=== PATIENT | male | born 1935 | race Caucasian/White ===

== ENCOUNTER 2016-09-28 13:44 | Inpatient (IN) | payer OTHER ==
[~2016-09-28] VITALS: Ht 172.7 cm; Wt 87.7 kg
--- NOTE | ~2016-09-28 | 2DMMODE ---
[facility] [address] [place] [address] 2 D/M-MODE ECHOCARDIOGRAM Name: GAIL PERERA Room #: 304-P [facility] IN ..#: [id number] Admission: 09/28/16 Attend Phys: Gail Parker, Discharge: Date of : 35 Date of Service: 09/30/16 1355 Report #: [id number] THIS REPORT FOR: //name// APPROVED REPORT Study performed: 09/30/2016 09:32:12 EXAM: Comprehensive 2D, Doppler, and color-flow Echocardiogram Patient Location: Bedside Room #: 304 Status: on-call Other Information Study Quality: Good Indications RI. Hx: ISCM, Afib, COPD, CHF 2D Dimensions RVDd: 46.95 mm LVEF(%): 15.10 (>50%) IVSd: 11.18 (7-11mm) LVOT Diam: 21.57 (18-24mm) LVDd: 60.81 mm PWd: 10.01 (7-11mm) Ascending Ao: 34.42 (22-36mm) LVDs: 56.62 (25-40mm) Aortic Root: 38.08 mm Osman's LVEF: 15.10 % Volumes Left Atrial Volume (Systole) Single Plane 4CH: 77.60 mL Single Plane 2CH: 103.80 mL LA ESV Index: 47.00 mL/m2 Aortic Valve AoV Peak Jay Jay.: 1.20 m/s AO Peak Gr.: 6.03 mmHg LVOT Max P.96 mmHg LVOT Max V: 0.70 m/s ZACARIAS Vmax: 2.13 cm2 Mitral Valve MV Decel. Time: 102.52 ms MV E Max Jay Jay.: 1.35 m/s Pulmonary Valve PV Peak Jay Jay.: 0.54 m/s PV Peak Gr.: 1.[address] [facility] [place] [address] 2 D/M-MODE ECHOCARDIOGRAM Name: GAIL PERERA Room #: 304-P [facility]#: [id number] Admission: 09/28/16 Attend Phys: Gail Parker, Discharge: Date of : 35 Date of Service: 09/30/16 1355 Report #: [id number] Tricuspid Valve TR Peak Jay Jay.: 4.08 m/s RAP Estimate: 15.00 mmHg TR Peak Gr.: 66.65 mmHg PA Pressure: 82.00 mmHg Left Ventricle Left ventricle is mildly dilated. There is normal left ventricular wall thickness. Left ventricular systolic function is severely decreased. LVEF is 25%. This study is not technically sufficient to allow evaluation of the LV diastolic function. Right Ventricle Right ventricle is moderately dilated. Right ventricle is hypokinetic. Atria Left atrium is severely dilated. Right atrium is severely dilated. Aortic Valve Aortic valve leaflets are mildly thickened. No aortic regurgitation is present. There is no aortic valvular stenosis. Mitral Valve Mitral valve leaflets are structurally normal Moderate mitral regurgitation. Tricuspid Valve There is moderate to severe tricuspid regurgitation. The right atrial pressure is estimated at 15 mmHg. There is severe pulmonary hypertension with an estimated PAP of 80-85mmHg. Pulmonic Valve The pulmonary valve is normal in structure. Trace pulmonic regurgitation. Great Vessels Aortic root is at the upper limites of normal. The ascending aorta is normal in size. IVC is dilated and collapses <50% with inspiration. Pericardium There is no pericardial effusion. <Conclusion> Left ventricular systolic function is severely decreased. [facility] [address] [place] [address] 2 D/M-MODE ECHOCARDIOGRAM Name: GAIL PERERA Room #: 304-P [facility] IN ..#: [id number] Admission: 09/28/16 Attend Phys: Gail Parker, Discharge: Date of : 35 Date of Service: 09/30/16 1355 Report #: [id number] LVEF is 25%. Both atria are severely dilated. Aortic valve leaflets are mildly thickened. No aortic regurgitation or stenosis Mitral valve leaflets are structurally normal. Moderate mitral regurgitation. There is severe pulmonary hypertension with an estimated pulmonary artery pressure of 80-85mmHg. There is no pericardial effusion. <ELECTRONICALLY SIGNED> By: Harry Reyes MD, [facility] 09/30/16 1355 1355 1355 Harry Reyes MD, [facility] /INF
--- NOTE | ~2016-09-28 | HC ---
[facility] [place] [address] [place] [address] CONSULTATION Name: GAIL PERERA Room #: 304-P [facility] IN M.R.#: [id number] Admission: 09/28/16 Attend Phys: Gail Parker DO Discharge: 10/04/16 Date of : 35 Report #: [id number] THIS REPORT FOR: //name// CC: Juan Carlos Parker PRIMARY PHYSICIAN: Juan Carlos Matthews DO REFERRING PHYSICIAN: Gail Parker DO REASON FOR REFERRAL: Dyspnea, possible COPD, and effusion. HISTORY OF PRESENT ILLNESS: The patient is an 80-year-old white male who was transferred from [facility] for further evaluation and management of his acute cholecystitis. He has COPD. A pulmonary consultation was requested. The patient has had abdominal pain recently. He was found to have acute cholecystitis. A percutaneous cholecystostomy tube was placed there. Unfortunately, the tube was accidently pulled out yesterday. Overnight, the patient has had worsening abdominal pain. For that reason, the patient was transferred to [facility] for further evaluation and management. The patient states that he has smoked, but quit in . He was currently being evaluated for possible COPD. A pulmonary function test was performed. He was scheduled to see a battery container finishing hand at [facility]. Aside from his abdominal pain, he also has mild dyspnea. Otherwise, denies any chest pain, productive cough or hemoptysis. During this hospital stay, the patient was treated for presumed pneumonia. He has right lower extremity DVT and is on Eliquis. He has coronary artery disease with ischemic cardiomyopathy, ejection fraction at 25%. PAST MEDICAL HISTORY: Recent diagnosis of Lewy body dementia, coronary artery disease, ischemic cardiomyopathy, atrial fibrillation, presumed COPD, chronic systolic heart failure, hypocholesterolemia, gastroesophageal reflux disease, hypothyroidism, peripheral artery disease, skin cancer, history of depression, and also as mentioned above. PAST SURGICAL HISTORY: Lumbar diskectomy, prior oral surgery with complete tooth extraction, shoulder rotator cuff surgery, kyphoplasty for compression fracture of the vertebrae from a fall, and right carotid endarterectomy. ALLERGIES: None to medications. CURRENT MEDICATIONS: List reviewed. This would include vancomycin, Zosyn, Eliquis, metoprolol, amiodarone, diltiazem, levothyroxine, spironolactone, [address] [address] CONSULTATION Name: GAIL PERERA Room #: 304-P [facility] IN ..#: [id number] Admission: 09/28/16 Attend Phys: Gail Parker DO Discharge: 10/04/16 Date of : 35 Report #: [id number] omeprazole, Ventolin, Celexa, and Lipitor. FAMILY HISTORY: Noncontributory. SOCIAL HISTORY: The patient is . He has smoked, but quit in . Denies any alcohol use. He used to work in construction . REVIEW OF SYSTEMS: As mentioned above, otherwise 10-point system review negative. PHYSICAL EXAMINATION: GENERAL: He is awake, alert, in mild distress. VITAL SIGNS: Temperature is 97.7 degrees Fahrenheit, pulse is 87, respiratory rate is 18, blood pressure is 89/60 mmHg, and saturation is 99% on 2 liters of O2. HEENT: Normocephalic and atraumatic. NECK: Supple, without any lymphadenopathy or thyromegaly. CHEST: Breath sounds are moderate with mild expiratory wheezes. CARDIOVASCULAR: Normal S1 and S2. There are no obvious murmurs or gallop. Pulses are 2+/4+ bilaterally. ABDOMEN: Soft, mildly tender in right upper quadrant, no masses felt. GENITOURINARY: Deferred. RECTAL: Deferred. EXTREMITIES: No cyanosis or clubbing, but remarkable 2-3+/4+ bilateral edema. LABORATORY DATA: CT abdomen noted, showing incompletely distended gallbladder with moderate surrounding inflammation, [id number] right-sided pleural effusion. Electrolytes, sodium 135, potassium 4.3, chloride 98, CO2 is 32, BUN is 42, creatinine is 1.6. Liver function test is unremarkable. WBC 11,500, hemoglobin is 12.1. No evidence of bandemia. Albumin 2.3. IMPRESSION: 1. Oews-yq-qxuvqdhf right-sided pleural effusion in this 80-year-old white male. This is likely reactive due to his acute cholecystitis. I would recommend a diagnostic thoracentesis to rule out complicated effusion. 2. Probable chronic obstructive pulmonary disease with bronchospasm, hypoxia. Continue bronchodilators. Wean O2 to keep saturation 90%. 3. Acute cholecystitis, status post cholecystostomy tube placement earlier today. 4. Atrial fibrillation. 5. Right lower extremity deep venous thrombosis, on anticoagulation. Defer to primary team. 6. Lewy body dementia. 7. Renal insufficiency, unclear if it is acute or chronic. 8. Protein-calorie malnutrition, severe with an albumin of 2.3. [facility] [address] [place] [address] CONSULTATION Name: TREVERGAIL Hicks Room #: 304-P [facility] IN .R.#: [id number] Admission: 09/28/16 Attend Phys: Gail Parker DO Discharge: 10/04/16 Date of : 35 Report #: [id number] RECOMMENDATION: We will continue bronchodilators. I will defer corticosteroids at this time given acute cholecystitis. DVT and GI prophylaxis will be addressed. Follow renal function closely. Thank you for this consultation. <ELECTRONICALLY SIGNED> By: Zac Carbajal MD 10/06/16 1850 [id number] 1525 Zac Carbajal MD /nt
--- NOTE | ~2016-09-28 | HC ---
[facility] [place] [address] [place] [address] CONSULTATION Name: GAIL PERERA Room #: 304-P ADM IN M.R.#: [id number] Admission: 09/28/16 Attend Phys: Gail Parker DO Discharge: Date of : 35 Report #: [id number] THIS REPORT FOR: //name// CC: Juan Carlos Parker HISTORY OF PRESENT ILLNESS: The patient is an 80-year-old male who it sounds like has complicated history, but was admitted to [facility] earlier this month, then subsequently transferred here under the auspice of some heart failure, pneumonia, and ____ relatively recent onset of atrial fibrillation. We have limited records; he had bilateral carotid endarterectomies previously. It appears that his home medications had been Eliquis 2.5 b.i.d. for DVT, there are reports of right lower extremity DVT and I do not know the duration of that; metoprolol 25; amiodarone 400 b.i.d., this was started down there; Aldactone; vancomycin; omeprazole; albuterol; Celexa; had been on levothyroxine, aspirin, gabapentin, and glucosamine. He is not able to give much of a history here, as he is status post I believe a repeat drain put in for gallbladder issues, has been holding on gallbladder surgery for 3 months is my understanding. No documented coronary artery disease and I do not know the history of AFib. Daughter is here, but she is not really aware of whether he has had it before or not. Apparent right lower extremity DVT and some questionable clot where a PICC line was pulled out of the right upper extremity, although that exam is negative right now. He had impending sepsis from this gallbladder issue and acute hepatitis, which all resolved, and the right lower extremity DVT. The atrial fib has been difficult to control. He allegedly had an echo done on September 18, but I cannot locate the report in these extensive records from [place]. He will respond to my voice. PAST MEDICAL HISTORY: Positive for this gallbladder issue; cholesterol; AFib; Lewy body dementia; COPD; some history of heart failure; coronary artery disease, I do not have specific history; hypothyroidism; bilateral carotid endarterectomies; kyphoplasties; rotator cuff; pancreatitis; and cholecystitis earlier this month ____ hospitalization in [place]. MEDICATIONS: Currently, he is on Exelon, oxycodone, Mag-Ox, metoprolol 25, amiodarone 400 b.i.d., diltiazem 180, Eliquis 2.5 b.i.d., levothyroxine, Aldactone 25, Zosyn, vancomycin, omeprazole, albuterol, Celexa, and Lipitor 10. SOCIAL HISTORY: Apparently no current alcohol or tobacco. Lives at home, still with some help according to the daughter. He is still . Retired from construction. FAMILY HISTORY: Not obtainable currently. ALLERGIES: No known drug allergies. LABORATORY DATA: Creatinine 1.8, now 1.6; potassium 4.3. GFR 42. [facility] [address] [place] [address] CONSULTATION Name: GAIL PERERA Room #: 304-P ADM IN M.R.#: [id number] Admission: 09/28/16 Attend Phys: Gail Parker DO Discharge: Date of : 35 Report #: [id number] protein 5.5. H and H 12.1 and 38.4, white count 11.5. He had a cholecystectomy tube just placed. PHYSICAL EXAMINATION: VITAL SIGNS: Blood pressure 112/62, pulse 70. HEENT: Eyes reveal xanthelasmas. Pharynx is with dry mucous membranes. NECK: Shows preserved upstrokes without JVD and a question of bruit. LUNGS: Diminished breath sounds in the bases, decreased excursion throughout. CARDIOVASCULAR: Distant heart tones, irregularly irregular, holosystolic murmur. ABDOMEN: Soft, status post tube placement. Slightly distended, appears minimally tender, although is minimally responsive currently. EXTREMITIES: Revealed 2 to 3+ edema, right greater than left. Does not respond for Homans sign. I cannot palpate distal pulses. NEUROLOGIC: Essentially nonfocal. He moves all 4 extremities, appears very sedated from the apparent cholecystectomy tube, but the daughter states he normally is responsive to some extent. MUSCULOSKELETAL: Generalized arthritic changes. ASSESSMENT: 1. Recent atrial fibrillation with rapid ventricular response, currently rate controlled on multiple medications. 2. Right lower extremity deep venous thrombosis. 3. Possible pneumonia. 4. Impending sepsis secondary to acute on chronic cholecystitis, cholelithiasis, has been holding off on any surgical procedure, drain recently placed. 5. Right lower extremity deep venous thrombosis. 6. Hypothyroidism. 7. History of heart failure. I do not have specific records regarding this. RECOMMENDATIONS AND PLAN: I would go with Lovenox currently, it looks like this may be an Eliquis failure here with his deep venous thrombosis, although I do not really fully understand the timing of these medications when they were initiated. His rate is currently controlled. I will start IV Lasix 40 IV b.i.d. based on the significant amount of edema, though daughter states he has very large legs compared to usual for him, so significant fluid retainment. Echo Doppler in the morning. I will discontinue the Eliquis, start the Lovenox, he may be a q.24 based on renal function. We will continue the metoprolol, Cardizem, and amiodarone currently. We will follow with you. Thank you for asking me to assist in the care of this patient. By: [id number] Guillermo Rossi MD, FACC /nt
--- NOTE | ~2016-09-28 | HC ---
[facility] [place] [address] CONSULTATION Name: GAIL PERERA Room #: 304-P [facility] IN .R.#: [id number] Admission: 09/28/16 Attend Phys: Gail Parker DO Discharge: Date of : 35 Report #: [id number] THIS REPORT FOR: //name// CC: Juan Carlos Matthews Gail Parker DATE OF SERVICE: 09/28/2016 REFERRING PROVIDER: Gail Parker M.D. REASON FOR CONSULTATION: Abdominal pain. HISTORY OF PRESENT ILLNESS: The patient is an 80-year-old male with a history of Lewy body dementia who was admitted to [facility] on 09/12/2016 with pneumonia and weakness where he was diagnosed with sepsis. The patient was found to have severe acute cholecystitis and as such underwent placement of a percutaneous cholecystostomy tube. Through his hospitalization, he developed atrial fibrillation with rapid ventricular response as well as a right lower extremity DVT for which he was placed on Eliquis. Unfortunately, the patient traumatically removed his percutaneous cholecystostomy tube yesterday and has had progressive worsening in abdominal pain and has now become febrile at the outside hospital. As such, he was transferred here for definitive care, especially in light of his ischemic cardiomyopathy with his ejection fraction of 25%. PAST MEDICAL HISTORY: Lewy body dementia, ischemic cardiomyopathy, atrial fibrillation with RVR, COPD, CHF, coronary artery disease, hypercholesterolemia, GERD, hypothyroidism, peripheral vascular disease, prior skin cancer, depression and his recent severe cholecystitis and pancreatitis. MEDICATIONS: Rivastigmine, oxycodone IR, Maalox, Toprol-XL, Lidoderm patch, amiodarone, Cardizem, Eliquis, Colace, senna, Synthroid, Aldactone, Tylenol, Zosyn, vancomycin, Prilosec, albuterol, Celexa and Lipitor. ALLERGIES: No known drug allergies. FAMILY HISTORY: Reviewed and noncontributory. SOCIAL HISTORY: The patient is a former smoker, having quit several years ago. Does not currently utilize tobacco, alcohol or illicit drugs. REVIEW OF SYSTEMS: GENERAL: The patient states positive fevers, chills, malaise and weakness. HEENT: No change in vision, change in hearing. NECK: No swelling or difficulty swallowing. HEART: No chest pain, but does have some shortness of breath. [address] [address] CONSULTATION Name: GAIL PERERA Room #: 304-P [facility] IN M.R.#: [id number] Admission: 09/28/16 Attend Phys: Gail Parker DO Discharge: Date of : 35 Report #: [id number] LUNGS: Positive for coughing and shortness of breath. ABDOMEN: Abdominal pain and nausea. GENITOURINARY: No dysuria or hematuria. ENDOCRINE: No polyuria or polydipsia. HEMATOLOGIC: No history of bleeding or easy bruising. EXTREMITIES: No history of weakness or limited range of motion. NEUROLOGIC: No history of syncope or near syncopal episodes. SKIN AND INTEGUMENT: No history of abnormal lesions or moles. PSYCHIATRIC: No history of anxiety or depression. PHYSICAL EXAMINATION: VITAL SIGNS: Temperature 97.6, pulse 87, respirations 18, blood pressure 106/82. He stands 5 feet 8 inches tall and weighs 215 pounds. GENERAL: He is alert, in no acute distress. HEENT: Normocephalic, atraumatic. Pupils equal, round, reactive to light. NECK: Supple, without lymphadenopathy. Trachea midline. HEART: Currently appears regular rate and rhythm. LUNGS: Coarse breath sounds with diminished air entry in the right base. ABDOMEN: Soft, nondistended. He is tender to palpation in the right upper quadrant with mild guarding, but no rebound. GENITOURINARY: Normal external male genitalia. EXTREMITIES: No clubbing, cyanosis or edema. NEUROLOGIC: Cranial nerves 2-12 are grossly intact. PSYCHIATRIC: Normal mood and affect. SKIN AND INTEGUMENT: No abnormal lesions or moles. LABORATORY AND X-RAY DATA: CBC shows white blood cell count of 13,700, hemoglobin 12.2, platelets 202,000. Creatinine is 1.8. Liver function enzymes are elevated with a bilirubin of 1.2. AST is normal at 18, ALT is 64, alkaline phosphatase 117, albumin is low at 2.3. CT scan of the abdomen and pelvis was personally reviewed and shows surrounding inflammation around the gallbladder and pancreas and in the perihepatic region. He also appears to have a moderate right pleural effusion and infiltrate. ASSESSMENT AND PLAN: An 80-year-old male with a traumatically dislodged percutaneous cholecystostomy tube that was recently placed for severe acute cholecystitis. In addition, it appears he has pleural effusion with a possible pneumonia at the right base. Currently, the patient has been admitted. We will continue him on antibiotics at this time. Dr. Hernández has been asked to see the patient from an infectious disease standpoint. I will ask Interventional Radiology to replace a percutaneous cholecystostomy tube as well as drain any fluid intraabdominally that they see on their review of the CT scan. The patient is not an ideal surgical candidate moving forward and as such, all attempts will be made at managing him conservatively with percutaneous drainage at this time. I sincerely appreciate this consult. I will follow [address] [address] CONSULTATION Name: GAIL PERERA Room #: 304-P ADM IN M.R.#: [id number] Admission: 09/28/16 Attend Phys: Gail Parker DO Discharge: Date of : 35 Report #: [id number] closely and leave any further recommendations in the patient's chart as appropriate. <ELECTRONICALLY SIGNED> By: Roland Mariano MD, FACS 10/02/16 0840 0922 [id number] Roland Mariano MD, FACS /nt
[~2016-09-28 13:44] MED LIST: ASPIR 8181 MG PO; CARVEDILOL12.5 MG PO; CELEXA20 MG PO; COSAMIN DS CAP1 EACH PO; COZAAR100 MG PO; FISH OIL 1,001000 M2 PO; IBUPROFEN 600600 M1 PO; KLOR-CON 1010 MEQ PO; LASIX 40 MG TAB40 M2 PO; LEVOTHYROXIN0.075 MG PO; LIPITOR10 MG PO; NEURONTIN300 MG PO; PERCOCET 10-321 EACH PO; PRILOSEC 20 MG20 MG PO; VENTOLIN HFA 1818 GM INH
[2016-09-28 16:00] VITALS: BP 106/82
[2016-09-28] MEDS ORDERED: EXELON 9.5 MG9.5 MG TD (16:49)
[2016-09-28] MEDS ORDERED: OXYCODONE HCL 55 MG PO (16:50)
[2016-09-28] MEDS ORDERED: MAALOX ADVANCE355 M1 PO (16:51)
[2016-09-28] MEDS ORDERED: TOPROL XL25 MG PO (16:51)
[2016-09-28] MEDS ORDERED: LIDODERM 5%1 PATC1 TRANSDERM (16:52)
[2016-09-28] MEDS ORDERED: CARDIZEM CD180 MG PO (16:53)
[2016-09-28] MEDS ORDERED: PACERONE 200 M200 M1 PO (16:53)
[2016-09-28] MEDS ORDERED: ELIQUIS5 MG PO (16:55)
[2016-09-28] MEDS ORDERED: COLACE100 MG PO (16:57)
[2016-09-28] MEDS ORDERED: SENNA CONCENTR8.6 MG PO (16:58)
[2016-09-28] MEDS ORDERED: SYNTHROID88 MCG PO (16:59)
[2016-09-28] MEDS ORDERED: ALDACTONE25 MG PO (17:07)
[2016-09-28] MEDS ORDERED: TYLENOL325 MG PO ×2 (17:08)
[2016-09-28] MEDS ORDERED: ZOSYN 2.25 GR2.25 GM IV (17:11)
[2016-09-28] MEDS ORDERED: VANCO-0.9%750 MG/250 IV (17:14)
[2016-09-28 20:00] VITALS: BP 109/76
[2016-09-28 20:13] LABS: HEMATOCRIT 38.6 % (42.0-52.0); HEMOGLOBIN 12.2 gm/dL (14.0-18.0); MCH 26.1 pg (26.0-34.0); MCHC 31.5 g/dL (28.0-37.0); MCV 82.8 fL (80.0-100.0); PLATELET COUNT 202 thou/uL (150-400); RBC 4.66 mil/uL (4.50-6.00); RDW 18.3 % (10.5-14.5); WBC 13.7 thou/uL (4.0-11.0)
[2016-09-28 20:16] LABS: MANUAL DIFF YES
[2016-09-28 20:26] LABS: ALBUMIN 2.3 g/dL (3.4-5.0); CALCIUM 8.2 mg/dL (8.5-10.1); CREATININE 1.8 mg/dL (0.7-1.3); POTASSIUM 4.5 mmol/L (3.5-5.1); TOTAL BILIRUBIN 1.2 mg/dL (<0.1-1.0); TOTAL PROTEIN 5.5 g/dL (6.4-8.2)
[2016-09-28 20:43] LABS: ABSOLUTE NEUTROPHILS 11.6 thou/uL (1.4-8.2); BURR CELLS 3+; OVALOCYTES 1+; POLYCHROMASIA 2+; TOTAL CELL COUNT 100
[2016-09-29] VITALS (12 sets, daily range): BP systolic 89–130; BP diastolic 54–86
[2016-09-29 10:08] LABS: BASOPHILS 1.1 % (0.0-2.0); EOSINOPHILS 0.6 % (0.0-3.0); HEMATOCRIT 38.4 % (42.0-52.0); HEMOGLOBIN 12.1 gm/dL (14.0-18.0); LYMPHOCYTES 11.1 % (24.0-44.0); MCHC 31.4 g/dL (28.0-37.0); MCV 82.9 fL (80.0-100.0); MONOCYTES 9.2 % (1.0-8.0); PLATELET COUNT 205 thou/uL (150-400); RBC 4.64 mil/uL (4.50-6.00); RDW 18.6 % (10.5-14.5); WBC 11.5 thou/uL (4.0-11.0)
[2016-09-29 10:15] LABS: MANUAL DIFF NO
[2016-09-29 10:24] LABS: INR 1.2; PROTIME 12.7 Seconds (9.3-11.4)
[2016-09-29 10:27] LABS: CALCIUM 8.2 mg/dL (8.5-10.1); CREATININE 1.6 mg/dL (0.7-1.3); POTASSIUM 4.3 mmol/L (3.5-5.1)
[2016-09-30 03:52] VITALS: BP 116/79
[2016-09-30 04:09] LABS: HEMATOCRIT 38.9 % (42.0-52.0); HEMOGLOBIN 12.2 gm/dL (14.0-18.0); MCH 26.5 pg (26.0-34.0); MCHC 31.5 g/dL (28.0-37.0); MCV 84.1 fL (80.0-100.0); PLATELET COUNT 195 thou/uL (150-400); RBC 4.63 mil/uL (4.50-6.00); RDW 18.7 % (10.5-14.5); WBC 10.4 thou/uL (4.0-11.0)
[2016-09-30 04:16] LABS: MANUAL DIFF YES
[2016-09-30 04:35] LABS: CREATININE 1.8 mg/dL (0.7-1.3); POTASSIUM 4.1 mmol/L (3.5-5.1)
[2016-09-30 05:13] LABS: ABSOLUTE NEUTROPHILS 9.8 thou/uL (1.4-8.2); ATYPICAL LYMPHS 2 %; TOTAL CELL COUNT 100
[2016-09-30 05:14] LABS: ANISOCYTOSIS 2+
[2016-09-30 08:45] VITALS: BP 121/83
[2016-09-30 10:38] LABS: DIRECT BILIRUBIN 0.5 mg/dL (<0.1-0.3); TOTAL BILIRUBIN 1.2 mg/dL (<0.1-1.0)
[2016-09-30 17:10] VITALS: BP 101/65
[2016-09-30 19:42] VITALS: BP 108/69
[2016-10-01 03:19] VITALS: BP 112/75
[2016-10-01 07:50] LABS: CALCIUM 8.3 mg/dL (8.5-10.1); CREATININE 1.9 mg/dL (0.7-1.3); POTASSIUM 3.8 mmol/L (3.5-5.1)
[2016-10-01 08:49] VITALS: BP 122/76
[2016-10-01 16:12] VITALS: BP 98/61
[2016-10-01 19:04] VITALS: BP 116/85
[2016-10-02 03:46] VITALS: BP 112/77
[2016-10-02 03:49] LABS: HEMATOCRIT 38.1 % (42.0-52.0); HEMOGLOBIN 11.9 gm/dL (14.0-18.0); MCHC 31.3 g/dL (28.0-37.0); MCV 82.9 fL (80.0-100.0); PLATELET COUNT 213 thou/uL (150-400); RDW 18.3 % (10.5-14.5); WBC 15.2 thou/uL (4.0-11.0)
[2016-10-02 03:56] LABS: ALBUMIN 2.4 g/dL (3.4-5.0); CALCIUM 8.2 mg/dL (8.5-10.1); CREATININE 1.7 mg/dL (0.7-1.3); POTASSIUM 3.7 mmol/L (3.5-5.1); TOTAL BILIRUBIN 0.9 mg/dL (<0.1-1.0); TOTAL PROTEIN 5.9 g/dL (6.4-8.2)
[2016-10-02 03:59] LABS: MANUAL DIFF YES
[2016-10-02 07:49] VITALS: BP 117/58
[2016-10-02 08:38] LABS: ABSOLUTE NEUTROPHILS 14.3 thou/uL (1.4-8.2); ANISOCYTOSIS 1+; PLATELET ESTIMATE NORMAL; TOTAL CELL COUNT 100
[2016-10-02 15:10] VITALS: BP 121/81
[2016-10-02 19:40] VITALS: BP 115/60
[2016-10-03 04:40] VITALS: BP 116/75
[2016-10-03 05:39] LABS: HEMATOCRIT 39.7 % (42.0-52.0); HEMOGLOBIN 12.5 gm/dL (14.0-18.0); MCHC 31.4 g/dL (28.0-37.0); MCV 82.8 fL (80.0-100.0); RBC 4.79 mil/uL (4.50-6.00); RDW 18.5 % (10.5-14.5); WBC 15.6 thou/uL (4.0-11.0)
[2016-10-03 06:02] LABS: ALBUMIN 2.5 g/dL (3.4-5.0); CALCIUM 8.4 mg/dL (8.5-10.1); CREATININE 1.5 mg/dL (0.7-1.3); MAGNESIUM 1.8 mg/dL (1.8-2.4); POTASSIUM 3.7 mmol/L (3.5-5.1)
[2016-10-03 07:29] VITALS: BP 115/85
[2016-10-03 15:38] VITALS: BP 99/81
[2016-10-03 19:19] VITALS: BP 94/57
[2016-10-04 03:15] VITALS: BP 110/72
[2016-10-04 06:14] LABS: HEMATOCRIT 36.4 % (42.0-52.0); HEMOGLOBIN 11.5 gm/dL (14.0-18.0); MCHC 31.6 g/dL (28.0-37.0); MCV 82.4 fL (80.0-100.0); RBC 4.42 mil/uL (4.50-6.00); RDW 18.3 % (10.5-14.5); WBC 13.6 thou/uL (4.0-11.0)
[2016-10-04 06:24] LABS: CALCIUM 8.2 mg/dL (8.5-10.1); CREATININE 1.8 mg/dL (0.7-1.3); POTASSIUM 3.3 mmol/L (3.5-5.1)
[2016-10-04 08:38] VITALS: BP 123/71
[2016-10-04] MEDS ORDERED: TOPROL XL100 MG PO (10:15)
[2016-10-04] MEDS ORDERED: PRADAXA150 MG PO (10:15)
[2016-10-04] MEDS ORDERED: CARDIZEM CD240 MG PO (10:15)
[2016-10-04] MEDS ORDERED: OXYCODONE HCL 55 MG PO (10:15)
[2016-10-04] MEDS ORDERED: GUAIFENESIN/COD10 M1 PO (10:16)
[2016-10-04] MEDS ORDERED: UNASYN 3 GM VIAL3 G1 IV (10:17)
== END 2016-10-04 15:20 | DRG 871 ==
LOC: 3N 13:44
PROVIDERS: Family Medicine; Hospitalist; Internal Medicine Cardiovascular Disease; Internal Medicine Endocrinology, Diabetes & Metabolism; Internal Medicine Pulmonary Disease; Radiology Vascular & Interventional Radiology; Surgery
PROC: 0F9440Z Drainage of Gallbladder with Drainage Device, Percutaneous Endoscopic Approach (ICD-10-PCS; 2016-09-29)
PROC: B548ZZA Ultrasonography of Superior Vena Cava, Guidance (ICD-10-PCS; principal; 2016-10-03)
PROC: 02HV33Z Insertion of Infusion Device into Superior Vena Cava, Percutaneous Approach (ICD-10-PCS; principal; 2016-10-03)
DX: A41.9 Sepsis, unspecified organism (principal); E43 Unspecified severe protein-calorie malnutrition; K65.9 Peritonitis, unspecified; I82.401 Acute embolism and thrombosis of unspecified deep veins of right lower extremity; I50.22 Chronic systolic (congestive) heart failure; J90 Pleural effusion, not elsewhere classified; K80.12 Calculus of gallbladder with acute and chronic cholecystitis without obstruction; I82.621 Acute embolism and thrombosis of deep veins of right upper extremity; N17.9 Acute kidney failure, unspecified; I48.92 Unspecified atrial flutter; D68.59 Other primary thrombophilia; J96.11 Chronic respiratory failure with hypoxia; G31.83 Neurocognitive disorder with Lewy bodies; F02.80 Dementia in other diseases classified elsewhere, unspecified severity, without behavioral disturbance, psychotic disturbance, mood disturbance, and anxiety; I48.91 Unspecified atrial fibrillation; I25.5 Ischemic cardiomyopathy; J44.9 Chronic obstructive pulmonary disease, unspecified; I25.10 Atherosclerotic heart disease of native coronary artery without angina pectoris; K21.9 Gastro-esophageal reflux disease without esophagitis; E03.9 Hypothyroidism, unspecified; I73.9 Peripheral vascular disease, unspecified; F32.9 Major depressive disorder, single episode, unspecified; N18.9 Chronic kidney disease, unspecified; R65.20 Severe sepsis without septic shock; I27.2 Other secondary pulmonary hypertension; Z85.828 Personal history of other malignant neoplasm of skin; Z87.891 Personal history of nicotine dependence; Z68.29 Body mass index [BMI] 29.0-29.9, adult; Z79.899 Other long term (current) drug therapy
CPT/HCPCS: 10795; 27000